=== PATIENT | male | born 1995 | race Two or more races ===

== ENCOUNTER 2020-10-24 00:03 | Emergency (ER) | payer OTHER ==
[~2020-10-24] VITALS: Ht 180.3 cm; Wt 79.4 kg
[2020-10-24] MEDS ORDERED: KETO10TA2 PO (02:03)
== END 2020-10-24 02:09 | disposition home or self-care (01) ==
LOC: ER 00:03
DX: S00.03XA Contusion of scalp, initial encounter (principal); V49.49XA Driver injured in collision with other motor vehicles in traffic accident, initial encounter; Y93.89 Activity, other specified; Y92.488 Other paved roadways as the place of occurrence of the external cause; Y99.8 Other external cause status

== ENCOUNTER 2022-04-20 11:26 | Emergency (ER) | payer OTHER ==
[~2022-04-20] VITALS: Ht 180.3 cm; Wt 77.1 kg
[~2022-04-20 11:26] MED LIST: KETO10TA2 PO
== END 2022-04-20 20:29 | disposition home or self-care (01) ==
LOC: ER 11:26
DX: E86.0 Dehydration (principal); R25.2 Cramp and spasm; R42 Dizziness and giddiness